=== PATIENT | male | born 1940 | race Caucasian/White ===

== ENCOUNTER 2016-08-02 08:20 | Day surgery (SDC) | payer MEDICARE, OTHER ==
[2016-07-31 12:33] LABS: DEFINITIVE VIEW TRANSMISSION; Hemoglobin 15.6 g/dL (13.5-17.5); Mean Corpuscular Hemoglobin 31.1 pg (28.0-32.0); Mean Corpuscular Hgb Conc. 32.5 g/dL (32.0-36.0); Mean Corpuscular Volume 95.9 fL (80.0-100.0); Mean Platelet Volume 8.5 fL (7.4-10.4); Platelet Count (auto) 179 10^3/uL (140-450); Red Cell Distribution Width 14.8 % (11.6-16.0); White Blood Cell 10.4 10^3/uL (4.4-10.8)
[2016-07-31 12:50] LABS: INR 1.07 (0.9-1.15); Partial Thromboplastin Time 27.8 sec (22.64-33.71); Prothrombin Time 11.6 sec (9.37-12.3)
[2016-07-31 13:00] LABS: Metamyelocytes % 0; Myelocytes % 0; Promyelocytes % 0; Reactive Lymphocytes 0
[2016-07-31 14:08] LABS: Platelet Estimate Adequate
[~2016-08-02] VITALS: Ht 167.6 cm; Wt 82.6 kg
[~2016-08-02 08:20] MED LIST: ASPI-231 PO; ATE50T PO; FLUT100M7 IN; LEVO125T6 PO; PANT40TA2 PO; TRIA75TA55 PO
[2016-08-02] MEDS ORDERED: MIDAZOLAM HCL 5 MG/ML-1ML VIAL ONE (08:25)
[2016-08-02] MEDS ORDERED: diphenhdrAMINE HCL 50 MG/1 ML VL ONE (08:25)
[2016-08-02] MEDS ORDERED: SODIUM CHLORIDE LOCK 10 ML ONE (08:25)
[2016-08-02] MEDS ORDERED: fentaNYL CITRATE 100 MCG/2 ML VL ONE (08:25)
[2016-08-02] MEDS ORDERED: LIDOCAINE VISCOUS 2% 15ML UD ONE (09:07)
[2016-08-02 09:55] VITALS: BP 90/42
== END 2016-08-02 10:09 | disposition home or self-care (01) ==
LOC: GI 08:20
PROVIDERS: ATTEND Internal Medicine Gastroenterology
DX: K29.50 Unspecified chronic gastritis without bleeding (principal); K22.8 Other specified diseases of esophagus; I20.9 Angina pectoris, unspecified; I72.9 Aneurysm of unspecified site; Z95.1 Presence of aortocoronary bypass graft
CPT/HCPCS: 36415; 43239; 43248; 85007; 85027; 85610; 85730; 88305; 88312; 88342; J2250; J3010; J7030

== ENCOUNTER → 2016-08-29 | Outpatient (CLI) | payer MEDICARE, OTHER ==
[2016-08-29 15:42] LABS: Basophils # (auto) 0.1 uL; Basophils % (auto) 0.6 % (0.0-2.0); DEFINITIVE VIEW TRANSMISSION; Eosinophils # (auto) 1.3 uL; Eosinophils % (auto) 14.4 % (0.0-7.0); Hematocrit 45.5 % (41.0-53.0); Hemoglobin 15.1 g/dL (13.5-17.5); Lymphocytes # (auto) 1.8 uL; Lymphocytes % (auto) 19.3 % (10.0-50.0); Mean Corpuscular Hemoglobin 31.7 pg (28.0-32.0); Mean Corpuscular Hgb Conc. 33.3 g/dL (32.0-36.0); Mean Corpuscular Volume 95.2 fL (80.0-100.0); Mean Platelet Volume 8.4 fL (7.4-10.4); Monocytes # (auto) 0.9 uL; Monocytes % (auto) 9.2 % (0.0-12.0); Neutrophils # (auto) 5.2 uL; Neutrophils % (auto) 56.5 % (37.0-80.0); Platelet Count (auto) 152 10^3/uL (140-450); Red Cell Distribution Width 14.8 % (11.6-16.0); White Blood Cell 9.2 10^3/uL (4.4-10.8)
[2016-08-29 15:57] LABS: Albumin 3.3 g/dL (3.4-5.0); BUN/Creatinine Ratio 6.8; Bilirubin, Total 1.8 mg/dL (0.2-1.0); Calcium 8.4 mg/dL (8.5-10.1); Potassium 3.9 mmol/L (3.5-5.1)
== END | disposition home or self-care (01) ==
LOC: LAB 15:11
DX: I10 Essential (primary) hypertension (principal); Z98.890 Other specified postprocedural states; Z12.5 Encounter for screening for malignant neoplasm of prostate; Z12.11 Encounter for screening for malignant neoplasm of colon; E78.2 Mixed hyperlipidemia
CPT/HCPCS: 36415; 80053; 80061; 82270; 84153; 84403; 84443; 85025

== ENCOUNTER → 2016-12-26 | Outpatient (CLI) | payer MEDICARE, OTHER ==
[2016-12-26 12:16] LABS: Urine Bilirubin Negative (Negative); Urine Blood Negative /uL (Negative); Urine Color Yellow (Yellow); Urine Glucose Normal (Normal); Urine Ketone TRACE (Negative); Urine Nitrite Negative (Negative); Urine Urobilinogen Normal (Negative); Urine pH 5.5 (5.0-8.0)
[2016-12-26 12:21] LABS: Basophils # (auto) 0.1 uL; Basophils % (auto) 0.9 % (0.0-2.0); Eosinophils % (auto) 12.6 % (0.0-7.0); Hematocrit 50.6 % (41.0-53.0); Hemoglobin 16.9 g/dL (13.5-17.5); Lymphocytes # (auto) 1.5 uL; Lymphocytes % (auto) 19.8 % (10.0-50.0); Mean Corpuscular Hemoglobin 32.8 pg (28.0-32.0); Mean Corpuscular Hgb Conc. 33.5 g/dL (32.0-36.0); Mean Corpuscular Volume 97.9 fL (80.0-100.0); Mean Platelet Volume 8.9 fL (6.9-10.8); Monocytes # (auto) 0.9 uL; Monocytes % (auto) 11.5 % (0.0-12.0); Neutrophils # (auto) 4.2 uL; Neutrophils % (auto) 55.2 % (37.0-80.0); Nucleated Red Blood Cells % 0.3 %; Platelet Count (auto) 136 10^3/uL (140-450); Red Cell Distribution Width 14.6 % (11.8-14.3); White Blood Cell 7.7 10^3/uL (4.4-10.8)
[2016-12-26 12:48] LABS: Albumin 3.3 g/dL (3.4-5.0); BUN/Creatinine Ratio 7.8; Bilirubin, Direct 0.2 mg/dL (0-0.2); Bilirubin, Total 0.7 mg/dL (0.2-1.0); Calcium 8.6 mg/dL (8.5-10.1); Potassium 4.3 mmol/L (3.5-5.1)
== END | disposition home or self-care (01) ==
LOC: LAB 08:24
PROVIDERS: ATTEND Internal Medicine Cardiovascular Disease
DX: I10 Essential (primary) hypertension (principal); E78.00 Pure hypercholesterolemia, unspecified; K74.1 Hepatic sclerosis; E11.9 Type 2 diabetes mellitus without complications; R97.20 Elevated prostate specific antigen [PSA]; R53.81 Other malaise; E03.9 Hypothyroidism, unspecified; D64.9 Anemia, unspecified; E55.9 Vitamin D deficiency, unspecified; N39.0 Urinary tract infection, site not specified
CPT/HCPCS: 36415; 80048; 80061; 80076; 81003; 82306; 83036; 84153; 84403; 84443; 85025

== ENCOUNTER → 2017-01-23 | Outpatient (CLI) | payer MEDICARE, OTHER ==
[~2017-01-23] VITALS: Ht 167.6 cm; Wt 87.5 kg
[~2017-01-23] MED LIST changes: +ADENOSINE 74 MG in GIVE UN-DILUTED 0 ML IV ONE; +ADENOSINE 90 MG/30 ML INJ IV ONE
== END | disposition home or self-care (01) ==
LOC: Rad HDHVI 09:59
PROVIDERS: ATTEND Internal Medicine Cardiovascular Disease
DX: I10 Essential (primary) hypertension (principal); I25.10 Atherosclerotic heart disease of native coronary artery without angina pectoris; I25.2 Old myocardial infarction; E78.00 Pure hypercholesterolemia, unspecified; Z95.1 Presence of aortocoronary bypass graft
CPT/HCPCS: 78452; 93005; 96374; 96375; A9500; J0153

== ENCOUNTER → 2017-02-04 | Outpatient (CLI) | payer MEDICARE, OTHER ==
[~2017-02-04] MED LIST changes: -ADENOSINE 74 MG in GIVE UN-DILUTED 0 ML IV ONE; -ADENOSINE 90 MG/30 ML INJ IV ONE
== END | disposition home or self-care (01) ==
LOC: Rad HDHVI 13:20
PROVIDERS: ATTEND Internal Medicine Cardiovascular Disease
DX: I50.9 Heart failure, unspecified (principal)
CPT/HCPCS: 93306

== ENCOUNTER → 2017-02-18 | Outpatient (CLI) | payer MEDICARE, OTHER ==
[2017-02-18 13:13] LABS: Magnesium 2.1 mg/dL (1.6-2.6); Potassium 3.9 mmol/L (3.5-5.1)
== END | disposition home or self-care (01) ==
LOC: LAB 10:12
PROVIDERS: ATTEND Internal Medicine Cardiovascular Disease
DX: E03.9 Hypothyroidism, unspecified (principal); E87.6 Hypokalemia; R94.4 Abnormal results of kidney function studies; E83.42 Hypomagnesemia
CPT/HCPCS: 36415; 82565; 83735; 84132; 84439; 84443; 84520

== ENCOUNTER 2017-05-27 18:52 | Emergency (ER) | payer MEDICARE, OTHER ==
[~2017-05-27] VITALS: Ht 167.6 cm; Wt 85.3 kg
[~2017-05-27 18:52] MED LIST changes: -LEVO125T6 PO; +LEVO125T7 PO
[2017-05-27 20:30] LABS: Albumin 3.1 g/dL (3.4-5.0); Bilirubin, Total 2.7 mg/dL (0.2-1.0); Calcium 8.3 mg/dL (8.5-10.1); Potassium 4.2 mmol/L (3.5-5.1); Total Protein 8.1 g/dL (6.4-8.2)
[2017-05-27 20:32] LABS: Basophils # (auto) 0.1 uL; Eosinophils # (auto) 0 uL; Eosinophils % (auto) 0.2 % (0.0-7.0); Mean Corpuscular Hgb Conc. 33.6 g/dL (32.0-36.0); Neutrophils % (auto) 82.4 % (37.0-80.0)
[2017-05-27 20:34] LABS: Basophils % (auto) 0.4 % (0.0-2.0); Hematocrit 53.6 % (41.0-53.0); Lymphocytes # (auto) 1.3 uL; Lymphocytes % (auto) 7.3 % (10.0-50.0); Mean Corpuscular Hemoglobin 32.3 pg (28.0-32.0); Mean Corpuscular Volume 96.1 fL (80.0-100.0); Monocytes # (auto) 1.8 uL; Monocytes % (auto) 9.7 % (0.0-12.0); Neutrophils # (auto) 15.3 uL; Nucleated Red Blood Cells % 0.3 %; Platelet Count (auto) 190 10^3/uL (140-450); Red Blood Cells 5.58 10^6/uL (4.5-5.90); Red Cell Distribution Width 15.3 % (11.8-14.3); White Blood Cell 18.5 10^3/uL (4.4-10.8)
[2017-05-28] MEDS ORDERED: ACETAMINOPHEN 325 MG TAB PO ONE (00:30)
[2017-05-28] MEDS ORDERED: LEVOFLOXACIN 500 MG TAB ONE (01:24)
[2017-05-28] MEDS ORDERED: LEVOFLOXACIN 250 MG TAB PO ONE (01:30)
[2017-05-28 03:55] VITALS: BP 118/54
== END 2017-05-28 04:32 | disposition home or self-care (01) ==
LOC: ER 18:52
DX: M79.604 Pain in right leg (principal); M79.605 Pain in left leg; M19.90 Unspecified osteoarthritis, unspecified site; E07.89 Other specified disorders of thyroid
CPT/HCPCS: 36415; 71046; 80053; 83880; 84443; 84484; 85025; 85379; 93971

== ENCOUNTER → 2017-06-12 | Outpatient (CLI) | payer MEDICARE, OTHER ==
[~2017-06-12] MED LIST changes: +FUROSEMIDE 40 MG/4 ML VIAL IV ONE; +FUROSEMIDE 40 MG/4 ML VIAL ONE; +POTASSIUM CHL 20 Meq TABLET PO ONE
[2017-06-12 15:40] VITALS: BP 143/57
[2017-06-12 16:25] VITALS: BP 141/60
== END | disposition home or self-care (01) ==
LOC: CHF HDHVI 15:41
PROVIDERS: ATTEND Internal Medicine Cardiovascular Disease
DX: I50.9 Heart failure, unspecified (principal); I25.10 Atherosclerotic heart disease of native coronary artery without angina pectoris
CPT/HCPCS: 96374; G0463; J1940

== ENCOUNTER → 2017-07-15 | Outpatient (CLI) | payer MEDICARE, OTHER ==
[~2017-07-15] MED LIST changes: -FUROSEMIDE 40 MG/4 ML VIAL IV ONE; -FUROSEMIDE 40 MG/4 ML VIAL ONE; -POTASSIUM CHL 20 Meq TABLET PO ONE
[2017-07-15 16:13] LABS: Albumin 3.3 g/dL (3.4-5.0); Bilirubin, Total 0.9 mg/dL (0.2-1.0); Calcium 8.7 mg/dL (8.5-10.1); Potassium 4.8 mmol/L (3.5-5.1); Total Protein 7.9 g/dL (6.4-8.2)
== END | disposition home or self-care (01) ==
LOC: LAB 11:12
PROVIDERS: ATTEND Internal Medicine Cardiovascular Disease
DX: I11.0 Hypertensive heart disease with heart failure (principal); I50.33 Acute on chronic diastolic (congestive) heart failure; E11.9 Type 2 diabetes mellitus without complications; Z79.01 Long term (current) use of anticoagulants
CPT/HCPCS: 36415; 80053; 83880

== ENCOUNTER → 2017-09-02 | Outpatient (CLI) | payer MEDICARE, OTHER ==
[~2017-09-02] MED LIST changes: +FUROSEMIDE 100 MG/10ML VIAL IV SCH; +FUROSEMIDE 40 MG/4 ML VIAL ONE; +POTASSIUM CHL 20 Meq TABLET PO ONE
[2017-09-02 12:30] VITALS: BP 120/63
[2017-09-02 13:00] VITALS: BP 120/65
== END | disposition home or self-care (01) ==
LOC: CHF HDHVI 12:39
PROVIDERS: ATTEND Internal Medicine Cardiovascular Disease
DX: I11.0 Hypertensive heart disease with heart failure (principal); I50.33 Acute on chronic diastolic (congestive) heart failure; I25.10 Atherosclerotic heart disease of native coronary artery without angina pectoris; J44.9 Chronic obstructive pulmonary disease, unspecified; E11.9 Type 2 diabetes mellitus without complications; Z79.01 Long term (current) use of anticoagulants
CPT/HCPCS: 96374; G0463; J1940

== ENCOUNTER → 2018-01-15 | Outpatient (CLI) | payer MEDICARE, OTHER ==
[~2018-01-15] MED LIST changes: +FUROSEMIDE 100 MG/10ML VIAL IV ONE; -FUROSEMIDE 100 MG/10ML VIAL IV SCH; +POTASSIUM CHL 10 Meq TABLET PO ONE
[2018-01-15 12:40] VITALS: BP 130/70
[2018-01-15 13:00] VITALS: BP 126/65
== END | disposition home or self-care (01) ==
LOC: CHF HDHVI 12:40
PROVIDERS: ATTEND Internal Medicine Cardiovascular Disease
DX: E87.70 Fluid overload, unspecified (principal); I50.33 Acute on chronic diastolic (congestive) heart failure; J44.9 Chronic obstructive pulmonary disease, unspecified; I25.10 Atherosclerotic heart disease of native coronary artery without angina pectoris; E11.9 Type 2 diabetes mellitus without complications; Z79.01 Long term (current) use of anticoagulants
CPT/HCPCS: 96374; G0463; J1940

== ENCOUNTER → 2018-01-29 | Outpatient (CLI) | payer MEDICARE, OTHER ==
[~2018-01-29] VITALS: Ht 30.5 cm; Wt 83.9 kg
[~2018-01-29] MED LIST changes: -FUROSEMIDE 100 MG/10ML VIAL IV ONE; -FUROSEMIDE 40 MG/4 ML VIAL ONE; +IOHEXOL 350 MG/ML 100ML IJ ONE; -POTASSIUM CHL 10 Meq TABLET PO ONE; -POTASSIUM CHL 20 Meq TABLET PO ONE; +SODIUM CHLORIDE 0.9% 1,000 ML IV SCH
[2018-01-29 11:50] VITALS: BP 119/69
[2018-01-29 12:13] LABS: Basophils # (auto) 0.1 uL; Eosinophils # (auto) 0.5 uL; Lymphocytes # (auto) 1.7 uL; Mean Corpuscular Volume 96.6 fL (80.0-100.0)
[2018-01-29 12:15] LABS: Basophils % (auto) 0.8 % (0.0-2.0); Eosinophils % (auto) 5.9 % (0.0-7.0); Lymphocytes % (auto) 19.7 % (10.0-50.0); Mean Corpuscular Hemoglobin 32.1 pg (28.0-32.0); Mean Corpuscular Hgb Conc. 33.3 g/dL (32.0-36.0); Monocytes # (auto) 0.8 uL; Monocytes % (auto) 9.9 % (0.0-12.0); Neutrophils # (auto) 5.4 uL; Neutrophils % (auto) 63.7 % (37.0-80.0); Nucleated Red Blood Cells % 0.2 %; Platelet Count (auto) 207 10^3/uL (140-450); Red Blood Cells 5.92 10^6/uL (4.5-5.90); White Blood Cell 8.4 10^3/uL (4.4-10.8)
[2018-01-29 12:19] LABS: Hematocrit 57.2 % (41.0-53.0)
[2018-01-29 12:34] LABS: BUN/Creatinine Ratio 10.7; Calcium 8.3 mg/dL (8.5-10.1); Potassium 3.9 mmol/L (3.5-5.1)
== END | disposition home or self-care (01) ==
LOC: Rad HDHVI 10:19
PROVIDERS: ATTEND Internal Medicine Cardiovascular Disease
DX: N28.9 Disorder of kidney and ureter, unspecified (principal); M79.662 Pain in left lower leg; I11.0 Hypertensive heart disease with heart failure; I50.33 Acute on chronic diastolic (congestive) heart failure; D64.9 Anemia, unspecified; I70.202 Unspecified atherosclerosis of native arteries of extremities, left leg; I70.201 Unspecified atherosclerosis of native arteries of extremities, right leg; I83.93 Asymptomatic varicose veins of bilateral lower extremities; E11.9 Type 2 diabetes mellitus without complications; I25.10 Atherosclerotic heart disease of native coronary artery without angina pectoris; J44.9 Chronic obstructive pulmonary disease, unspecified; Z79.01 Long term (current) use of anticoagulants
CPT/HCPCS: 36415; 75635; 80048; 82565; 85025; 96360; G0463; J7030; Q9967

== ENCOUNTER → 2018-04-28 | Day surgery (SDC) | payer MEDICARE, OTHER ==
[2018-04-24 12:19] LABS: Basophils # (auto) 0.1 uL; Eosinophils # (auto) 0.5 uL; Monocytes # (auto) 0.7 uL; Nucleated Red Blood Cells % 0.1 %
[2018-04-24 12:20] LABS: Basophils % (auto) 0.8 % (0.0-2.0); Eosinophils % (auto) 7.5 % (0.0-7.0); Hematocrit 53.8 % (41.0-53.0); Hemoglobin 18.1 g/dL (13.5-17.5); Lymphocytes # (auto) 1.4 uL; Lymphocytes % (auto) 20.2 % (10.0-50.0); Mean Corpuscular Hemoglobin 32.4 pg (28.0-32.0); Mean Corpuscular Hgb Conc. 33.7 g/dL (32.0-36.0); Mean Corpuscular Volume 96.1 fL (80.0-100.0); Monocytes % (auto) 10.9 % (0.0-12.0); Neutrophils # (auto) 4.1 uL; Neutrophils % (auto) 60.6 % (37.0-80.0); Platelet Count (auto) 152 10^3/uL (140-450); Red Cell Distribution Width 14.7 % (11.8-14.3); White Blood Cell 6.7 10^3/uL (4.4-10.8)
[2018-04-24 12:36] LABS: INR 1.05 (0.9-1.15); Partial Thromboplastin Time 28.9 sec (23.78-33.04); Prothrombin Time 11.2 sec (9.27-12.13)
[~2018-04-28] VITALS: Ht 167.6 cm; Wt 86.2 kg
[~2018-04-28] MED LIST changes: +FLUMAZENIL 0.1 MG/ML INJ 10ML MDV IV ONE; -IOHEXOL 350 MG/ML 100ML IJ ONE; +LIDOCAINE VISCOUS 2% 15ML UD ONE; +MONT10TA34 PO; +NALOXONE HCL 0.4 MG/ML VIAL ONE; +POTA20TA53 PO; +RIVA10TA PO; -SODIUM CHLORIDE 0.9% 1,000 ML IV SCH; +SODIUM CHLORIDE LOCK 10 ML ONE; +TORS10TA12 PO; -TRIA75TA55 PO; +diphenhdrAMINE HCL 50 MG/1 ML VL ONE
[2018-04-28] MEDS: MIDAZOLAM HCL 5 MG/ML-1ML VIAL ONE ×2 (09:00→09:03)
[2018-04-28] MEDS: fentaNYL CITRATE 100 MCG/2 ML VL ONE ×2 (09:00→09:03)
[2018-04-28 09:45] VITALS: BP 108/65
== END | disposition home or self-care (01) ==
LOC: GI 08:10
PROVIDERS: ATTEND Internal Medicine Gastroenterology
DX: K29.50 Unspecified chronic gastritis without bleeding (principal); R13.10 Dysphagia, unspecified; K20.9 Esophagitis, unspecified; I20.9 Angina pectoris, unspecified; I50.9 Heart failure, unspecified; Q24.9 Congenital malformation of heart, unspecified; I72.9 Aneurysm of unspecified site; J44.9 Chronic obstructive pulmonary disease, unspecified; F41.9 Anxiety disorder, unspecified; I71.4 Abdominal aortic aneurysm, without rupture; Z82.3 Family history of stroke; Z98.49 Cataract extraction status, unspecified eye; Z95.1 Presence of aortocoronary bypass graft; Z79.82 Long term (current) use of aspirin; Z79.899 Other long term (current) drug therapy
CPT/HCPCS: 36415; 43239; 43248; 85025; 85610; 85730; 88305; 88342; A6257; J2250; J3010; J7030

== ENCOUNTER → 2018-09-18 | Outpatient (CLI) | payer MEDICARE, OTHER ==
[~2018-09-18] MED LIST changes: -FLUMAZENIL 0.1 MG/ML INJ 10ML MDV IV ONE; -LIDOCAINE VISCOUS 2% 15ML UD ONE; -NALOXONE HCL 0.4 MG/ML VIAL ONE; -SODIUM CHLORIDE LOCK 10 ML ONE; -diphenhdrAMINE HCL 50 MG/1 ML VL ONE
== END | disposition home or self-care (01) ==
LOC: LAB 15:00
PROVIDERS: ATTEND Internal Medicine Pulmonary Disease
DX: J44.0 Chronic obstructive pulmonary disease with (acute) lower respiratory infection (principal)
CPT/HCPCS: 87070; 87205

== ENCOUNTER → 2018-10-06 | Outpatient (CLI) | payer MEDICARE, OTHER ==
[~2018-10-06] MED LIST changes: +ALBUTEROL SULF 2.5 MG/0.5ML(0.5%) NEB SOLN ONE
== END | disposition home or self-care (01) ==
LOC: RT 09:00
PROVIDERS: ATTEND Internal Medicine Pulmonary Disease
DX: J44.9 Chronic obstructive pulmonary disease, unspecified (principal); J84.10 Pulmonary fibrosis, unspecified
CPT/HCPCS: 36600; 82805; 94060; J7611

== ENCOUNTER → 2019-01-07 | Outpatient (CLI) | payer MEDICARE, OTHER ==
[~2019-01-07] MED LIST changes: -ALBUTEROL SULF 2.5 MG/0.5ML(0.5%) NEB SOLN ONE; +POTA-220 PO; -POTA20TA53 PO
== END | disposition home or self-care (01) ==
LOC: Rad HDHVI 11:19
PROVIDERS: ATTEND Internal Medicine Cardiovascular Disease
DX: I83.93 Asymptomatic varicose veins of bilateral lower extremities (principal); I71.4 Abdominal aortic aneurysm, without rupture; M19.90 Unspecified osteoarthritis, unspecified site; I50.9 Heart failure, unspecified; Z87.891 Personal history of nicotine dependence
CPT/HCPCS: 93970

== ENCOUNTER → 2019-02-10 | Outpatient (CLI) | payer MEDICARE, OTHER ==
[~2019-02-10] MED LIST changes: +IOHEXOL 350 MG/ML 100ML IJ ONE; +SODIUM CHLORIDE 0.9% 500 ML IV ONE
[2019-02-10 12:30] VITALS: BP 118/58
--- NOTE | 2019-02-10 12:30 | NUR ---
[facility] PT ARRIVED AT THE [facility] FOR CT OF THE ABDOMEN A/O X 4 0 DISTRESS.
--- NOTE | 2019-02-10 12:40 | NUR ---
IV insertion IV access obtained, via clean sterile technique by inserting 22 gauge catheter at after attempt(s). IV secured properly. No trauma to site. Patient tolerated procedure well.
[2019-02-10 14:32] VITALS: BP 120/55
--- NOTE | 2019-02-10 15:00 | NUR ---
IV removal IV DC'd with sterile technique, catheter fully intact. Pressure dressing applied to site. Patient tolerated procedure well. Discharged with aftercare instructions per MD. NOTE: Addendum: 02/10/19 at 1639 by ANNE MARIE BURNETT RN [place] PT HYDRATED FOR CREA 1.6
--- NOTE | 2019-02-10 15:02 | NUR ---
Discharge Instructions See e-MAR for any mediations given with this visit. Patient education given on disease process. Patient verbalized understanding. Previous labs reviewed. Patient discharged in stable condition with after care instructions and follow up appointment. medication ns 500 ml IV
== END | disposition home or self-care (01) ==
LOC: Rad HDHVI 12:07
PROVIDERS: ATTEND Internal Medicine Cardiovascular Disease
DX: I71.4 Abdominal aortic aneurysm, without rupture (principal); K80.20 Calculus of gallbladder without cholecystitis without obstruction; K44.9 Diaphragmatic hernia without obstruction or gangrene; R94.4 Abnormal results of kidney function studies; I50.9 Heart failure, unspecified; M19.90 Unspecified osteoarthritis, unspecified site
CPT/HCPCS: 36415; 74175; 82565; G0463; J7040; Q9967; 96360

== ENCOUNTER → 2019-03-30 | Outpatient (CLI) | payer MEDICARE, OTHER ==
[~2019-03-30] MED LIST changes: +ATOR20TA50 PO; +CLOP75TA28 PO; +FURO20TA3 PO; -IOHEXOL 350 MG/ML 100ML IJ ONE; +LEV100T PO; -LEVO125T7 PO; -POTA-220 PO; -RIVA10TA PO; -SODIUM CHLORIDE 0.9% 500 ML IV ONE; -TORS10TA12 PO; +TRIA0.1C4 EX
[2019-03-30 15:55] LABS: Basophils # (auto) 0.1 uL; Eosinophils # (auto) 0.2 uL; Monocytes # (auto) 1.1 uL; Neutrophils # (auto) 8.4 uL
[2019-03-30 15:57] LABS: Basophils % (auto) 0.9 % (0.0-2.0); Hematocrit 47.3 % (41.0-53.0); Hemoglobin 15.7 g/dL (13.5-17.5); Lymphocytes # (auto) 1.4 uL; Lymphocytes % (auto) 12.5 % (10.0-50.0); Mean Corpuscular Hemoglobin 33.8 pg (28.0-32.0); Mean Corpuscular Hgb Conc. 33.1 g/dL (32.0-36.0); Neutrophils % (auto) 74.6 % (37.0-80.0); Platelet Count (auto) 287 10^3/uL (140-450); Red Blood Cells 4.64 10^6/uL (4.5-5.90); Red Cell Distribution Width 13.8 % (11.8-14.3); White Blood Cell 11.2 10^3/uL (4.4-10.8)
== END | disposition home or self-care (01) ==
LOC: LAB 11:53
PROVIDERS: ATTEND Internal Medicine Cardiovascular Disease
DX: D75.1 Secondary polycythemia (principal)
CPT/HCPCS: 36415; 85025

== ENCOUNTER → 2019-04-10 | Outpatient (CLI) | payer MEDICARE, OTHER ==
[2019-04-10 16:23] LABS: Basophils # (auto) 0.1 uL; Basophils % (auto) 0.7 % (0.0-2.0); Eosinophils # (auto) 0.3 uL; Eosinophils % (auto) 2.5 % (0.0-7.0); Hematocrit 47.9 % (41.0-53.0); Hemoglobin 16.3 g/dL (13.5-17.5); Lymphocytes # (auto) 1.6 uL; Lymphocytes % (auto) 15.8 % (10.0-50.0); Mean Corpuscular Hemoglobin 33.6 pg (28.0-32.0); Mean Corpuscular Hgb Conc. 34.1 g/dL (32.0-36.0); Mean Corpuscular Volume 98.6 fL (80.0-100.0); Neutrophils # (auto) 7.2 uL; Nucleated Red Blood Cells % 0.1 %; Platelet Count (auto) 113 10^3/uL (140-450); Red Blood Cells 4.86 10^6/uL (4.5-5.90); Red Cell Distribution Width 13.5 % (11.8-14.3); White Blood Cell 10.1 10^3/uL (4.4-10.8)
[2019-04-10 16:39] LABS: Free T4 (Free Thyroxine) 1.49 ng/dL (0.89-1.76); Prostate Specific Antigen 1.36 ng/mL (0.0-4.0)
[2019-04-10 16:46] LABS: Urine Blood Negative /uL (Negative); Urine Specific Gravity 1.009 (1.001-1.035)
[2019-04-10 16:49] LABS: BUN/Creatinine Ratio 8.4; Bilirubin, Total 1.8 mg/dL (0.2-1.0); Calcium 9.2 mg/dL (8.5-10.1); Total Protein 7.5 g/dL (6.4-8.2)
== END | disposition home or self-care (01) ==
LOC: Rad HDHVI 11:13
PROVIDERS: ATTEND Internal Medicine Cardiovascular Disease
DX: I08.0 Rheumatic disorders of both mitral and aortic valves (principal); E03.9 Hypothyroidism, unspecified; C61 Malignant neoplasm of prostate; D51.9 Vitamin B12 deficiency anemia, unspecified; K90.9 Intestinal malabsorption, unspecified; E29.1 Testicular hypofunction; R06.02 Shortness of breath; I11.0 Hypertensive heart disease with heart failure; I50.23 Acute on chronic systolic (congestive) heart failure; Z79.899 Other long term (current) drug therapy
CPT/HCPCS: 36415; 80053; 80061; 81003; 82306; 82607; 83036; 84153; 84403; 84439; 84443; 85025; 93306

== ENCOUNTER → 2019-06-17 | Outpatient (CLI) | payer MEDICARE, OTHER ==
[2019-06-17 15:40] LABS: Basophils # (auto) 0.1 10 ^3/uL (0-0.2); Basophils % (auto) 0.8 % (0.0-2.0); Eosinophils # (auto) 0.4 10 ^3/uL (0-0.8); Eosinophils % (auto) 5.5 % (0.0-7.0); Hematocrit 39.8 % (41.0-53.0); Hemoglobin 13.8 g/dL (13.5-17.5); Lymphocytes # (auto) 1.3 10 ^3/uL (0.4-5.4); Lymphocytes % (auto) 18.3 % (10.0-50.0); Mean Corpuscular Hemoglobin 31.6 pg (28.0-32.0); Mean Corpuscular Hgb Conc. 34.6 g/dL (32.0-36.0); Mean Corpuscular Volume 91.3 fL (80.0-100.0); Neutrophils # (auto) 4.6 10 ^3/uL (1.6-8.6); Neutrophils % (auto) 62.4 % (37.0-80.0); Platelet Count (auto) 106 10^3/uL (140-450); Red Blood Cells 4.36 10^6/uL (4.5-5.90); Red Cell Distribution Width 14.6 % (11.8-14.3); White Blood Cell 7.4 10^3/uL (4.4-10.8)
[2019-06-17 16:10] LABS: Albumin 2.9 g/dL (3.4-5.0); Calcium 8.6 mg/dL (8.5-10.1); Potassium 4.1 mmol/L (3.5-5.1)
[2019-06-17 16:11] LABS: % Iron Saturation 37.3 % (20-55)
[2019-06-17 16:12] LABS: BUN/Creatinine Ratio 8.1
[2019-06-17 16:15] LABS: Bilirubin, Total 1.4 mg/dL (0.2-1.0); Total Protein 7.6 g/dL (6.4-8.2)
[2019-06-17 16:17] LABS: Ferritin 536.8 ng/mL (10-322); Folate (Folic Acid) > 24.00 ng/mL (5.38-24)
== END | disposition home or self-care (01) ==
LOC: LAB 15:25
PROVIDERS: ATTEND Internal Medicine
DX: D75.1 Secondary polycythemia (principal); D69.6 Thrombocytopenia, unspecified
CPT/HCPCS: 36415; 80053; 82607; 82728; 82746; 83540; 83550; 85025

== ENCOUNTER → 2019-12-16 | Outpatient (CLI) | payer MEDICARE, OTHER ==
[2019-12-16 22:20] LABS: BUN/Creatinine Ratio 11.3; Calcium 8.8 mg/dL (8.5-10.1); Potassium 3.4 mmol/L (3.5-5.1)
== END | disposition home or self-care (01) ==
LOC: LAB 12:52
PROVIDERS: ATTEND Internal Medicine Cardiovascular Disease
DX: I10 Essential (primary) hypertension (principal)
CPT/HCPCS: 36415; 80048

== ENCOUNTER → 2020-01-29 | Outpatient (CLI) | payer MEDICARE, OTHER | END | disposition home or self-care (01) | LOC: Rad HDHVI 15:15 | PROVIDERS: ATTEND Internal Medicine Cardiovascular Disease | DX: I51.7 Cardiomegaly (principal); I25.10 Atherosclerotic heart disease of native coronary artery without angina pectoris; I25.5 Ischemic cardiomyopathy | CPT/HCPCS: 93306 ==

== ENCOUNTER → 2020-02-03 | Outpatient (CLI) | payer MEDICARE, OTHER ==
[~2020-02-03] VITALS: Ht 167.6 cm; Wt 72.1 kg
[~2020-02-03] MED LIST changes: +ADENOSINE 61 MG in GIVE UN-DILUTED 0 ML IV ONE; +ADENOSINE 90 MG/30 ML INJ IV ONE
== END | disposition home or self-care (01) ==
LOC: Rad HDHVI 14:15
PROVIDERS: ATTEND Internal Medicine Cardiovascular Disease
DX: I25.10 Atherosclerotic heart disease of native coronary artery without angina pectoris (principal); I25.2 Old myocardial infarction; I10 Essential (primary) hypertension; E78.5 Hyperlipidemia, unspecified; J44.9 Chronic obstructive pulmonary disease, unspecified; Z95.1 Presence of aortocoronary bypass graft
CPT/HCPCS: 78452; 93005; 96374; 96375; A9500; J0153

== ENCOUNTER → 2020-06-22 | Outpatient (CLI) | payer MEDICARE, OTHER ==
[~2020-06-22] MED LIST changes: -ADENOSINE 61 MG in GIVE UN-DILUTED 0 ML IV ONE; -ADENOSINE 90 MG/30 ML INJ IV ONE
== END | disposition home or self-care (01) ==
LOC: Rad HDHVI 13:36
PROVIDERS: ATTEND Internal Medicine Cardiovascular Disease
DX: I70.0 Atherosclerosis of aorta (principal); J06.9 Acute upper respiratory infection, unspecified
CPT/HCPCS: 71046

== ENCOUNTER → 2020-09-05 | Outpatient (CLI) | payer MEDICARE, OTHER ==
[~2020-09-05] MED LIST changes: -MONT10TA34 PO; +MONT10TA42 PO
[2020-09-05 15:29] LABS: Basophils # (auto) 0.1 10 ^3/uL (0-0.2); Basophils % (auto) 1.1 % (0.0-2.0); Eosinophils # (auto) 0.6 10 ^3/uL (0-0.8); Eosinophils % (auto) 7.5 % (0.0-7.0); Hematocrit 45.4 % (41.0-53.0); Hemoglobin 15.6 g/dL (13.5-17.5); Lymphocytes # (auto) 1.9 10 ^3/uL (0.4-5.4); Lymphocytes % (auto) 23.7 % (10.0-50.0); Mean Corpuscular Hgb Conc. 34.3 g/dL (32.0-36.0); Mean Corpuscular Volume 93.3 fL (80.0-100.0); Monocytes # (auto) 0.8 10 ^3/uL (0-1.3); Monocytes % (auto) 9.4 % (0.0-12.0); Neutrophils # (auto) 4.7 10 ^3/uL (1.6-8.6); Neutrophils % (auto) 58.3 % (37.0-80.0); Nucleated Red Blood Cells % 0.1 %; Platelet Count (auto) 235 10^3/uL (140-450); Red Blood Cells 4.86 10^6/uL (4.5-5.90); Red Cell Distribution Width 15.2 % (11.8-14.3); White Blood Cell 8.1 10^3/uL (4.4-10.8)
[2020-09-05 15:41] LABS: Urine Blood Negative /uL (Negative); Urine Specific Gravity 1.006 (1.001-1.035)
[2020-09-05 15:42] LABS: Albumin 2.7 g/dL (3.4-5.0); Calcium 8.6 mg/dL (8.5-10.1); Potassium 4.2 mmol/L (3.5-5.1)
[2020-09-05 15:51] LABS: Free T4 (Free Thyroxine) 0.96 ng/dL (0.89-1.76)
[2020-09-05 15:52] LABS: Prostate Specific Antigen 1.61 ng/mL (0.0-4.0)
[2020-09-05 15:55] LABS: BUN/Creatinine Ratio 7.8; Bilirubin, Total 1.2 mg/dL (0.2-1.0); Total Protein 7.3 g/dL (6.4-8.2)
== END | disposition home or self-care (01) ==
LOC: LAB 11:09
PROVIDERS: ATTEND Internal Medicine Cardiovascular Disease
DX: C61 Malignant neoplasm of prostate (principal); D51.3 Other dietary vitamin B12 deficiency anemia; D64.9 Anemia, unspecified; E11.9 Type 2 diabetes mellitus without complications; E55.9 Vitamin D deficiency, unspecified; I10 Essential (primary) hypertension; R00.2 Palpitations; R53.1 Weakness; R30.0 Dysuria
CPT/HCPCS: 36415; 80053; 80061; 81003; 82306; 82607; 83036; 84153; 84403; 84439; 84443; 85025

== ENCOUNTER → 2020-11-09 | Outpatient (CLI) | payer MEDICARE, OTHER | END | disposition home or self-care (01) | LOC: Rad HDHVI 11:16 | PROVIDERS: ATTEND Internal Medicine Cardiovascular Disease | DX: I10 Essential (primary) hypertension (principal); R06.02 Shortness of breath | CPT/HCPCS: 93306 ==

== ENCOUNTER → 2020-11-18 | Outpatient (CLI) | payer MEDICARE, OTHER ==
[2020-11-18 11:40] VITALS: BP 128/60
== END | disposition home or self-care (01) ==
LOC: CHF HDHVI 11:39
PROVIDERS: ATTEND Internal Medicine Cardiovascular Disease
DX: I87.2 Venous insufficiency (chronic) (peripheral) (principal)
CPT/HCPCS: G0463

== ENCOUNTER → 2020-11-21 | Outpatient (CLI) | payer MEDICARE, OTHER ==
[2020-11-21 13:53] VITALS: BP 114/43
[2020-11-21 14:45] VITALS: BP 106/42
== END | disposition home or self-care (01) ==
LOC: CHF HDHVI 13:52
PROVIDERS: ATTEND Internal Medicine Cardiovascular Disease
DX: I87.2 Venous insufficiency (chronic) (peripheral) (principal)
CPT/HCPCS: G0463

== ENCOUNTER → 2020-11-24 | Outpatient (CLI) | payer MEDICARE, OTHER ==
[2020-11-24 14:43] VITALS: BP 124/44
[2020-11-24 15:20] VITALS: BP 118/47
== END | disposition home or self-care (01) ==
LOC: CHF HDHVI 14:27
PROVIDERS: ATTEND Internal Medicine Cardiovascular Disease
DX: I87.8 Other specified disorders of veins (principal)
CPT/HCPCS: G0463

== ENCOUNTER → 2021-04-14 | Outpatient (CLI) | payer MEDICARE, OTHER ==
[~2021-04-14] MED LIST changes: -ASPI-231 PO; +ASPI1TAB20 PO; +MONT-8 PO; -MONT10TA42 PO
[2021-04-14 15:20] LABS: Urine Blood Negative /uL (Negative); Urine Specific Gravity 1.024 (1.001-1.035)
[2021-04-14 15:22] LABS: Basophils # (auto) 0.1 10 ^3/uL (0-0.2); Basophils % (auto) 0.8 % (0.0-2.0); Eosinophils # (auto) 0.2 10 ^3/uL (0-0.8); Eosinophils % (auto) 3.3 % (0.0-7.0); Hematocrit 49.2 % (41.0-53.0); Hemoglobin 16.3 g/dL (13.5-17.5); Lymphocytes # (auto) 1.3 10 ^3/uL (0.4-5.4); Lymphocytes % (auto) 18.1 % (10.0-50.0); Mean Corpuscular Hemoglobin 33.5 pg (28.0-32.0); Mean Corpuscular Hgb Conc. 33.2 g/dL (32.0-36.0); Mean Corpuscular Volume 100.8 fL (80.0-100.0); Monocytes # (auto) 0.7 10 ^3/uL (0-1.3); Monocytes % (auto) 10.7 % (0.0-12.0); Neutrophils # (auto) 4.7 10 ^3/uL (1.6-8.6); Neutrophils % (auto) 67.1 % (37.0-80.0); Red Blood Cells 4.88 10^6/uL (4.5-5.90); Red Cell Distribution Width 15.3 % (11.8-14.3)
[2021-04-14 15:28] LABS: Albumin 3.1 g/dL (3.4-5.0); Potassium 4.8 mmol/L (3.5-5.1)
[2021-04-14 15:35] LABS: BUN/Creatinine Ratio 11.7; Bilirubin, Total 1.8 mg/dL (0.2-1.0); Calcium 8.4 mg/dL (8.5-10.1); Total Protein 6.9 g/dL (6.4-8.2)
[2021-04-14 15:37] LABS: Free T4 (Free Thyroxine) 0.56 ng/dL (0.89-1.76)
== END | disposition home or self-care (01) ==
LOC: LAB 13:44
PROVIDERS: ATTEND Internal Medicine Cardiovascular Disease
DX: C61 Malignant neoplasm of prostate (principal); D51.3 Other dietary vitamin B12 deficiency anemia; I10 Essential (primary) hypertension; E11.9 Type 2 diabetes mellitus without complications; E55.9 Vitamin D deficiency, unspecified; D64.9 Anemia, unspecified; R00.2 Palpitations; R53.1 Weakness; R30.0 Dysuria
CPT/HCPCS: 36415; 80053; 80061; 81003; 82306; 82607; 83036; 84439; 84443; 85025

== ENCOUNTER → 2021-05-24 | Outpatient (CLI) | payer MEDICARE, OTHER | END | disposition home or self-care (01) | LOC: CHF HDHVI 10:21 | PROVIDERS: ATTEND Internal Medicine Cardiovascular Disease | DX: E03.9 Hypothyroidism, unspecified (principal) | CPT/HCPCS: 36415; 84443 ==

== ENCOUNTER → 2021-06-26 | Outpatient (CLI) | payer MEDICARE, OTHER | END | disposition home or self-care (01) | LOC: LAB 14:05 | PROVIDERS: ATTEND Internal Medicine Cardiovascular Disease | DX: C61 Malignant neoplasm of prostate (principal) | CPT/HCPCS: 84153 ==

== ENCOUNTER → 2021-07-03 | Outpatient (CLI) | payer MEDICARE, OTHER ==
[~2021-07-03] MED LIST changes: +BUMETANIDE 1mg/4ml VIAL (0.25mg/ml) ONE; +BUMETANIDE 2.5mg/10ml (0.25 mg/ml) INJ IV ONE; +BUMETANIDE INJECTION 10 ML ONE; +POTASSIUM CHL 20 Meq TABLET PO ONE
[2021-07-03 11:36] VITALS: BP 131/50
[2021-07-03 12:11] VITALS: BP 145/58
== END | disposition home or self-care (01) ==
LOC: Rad HDHVI 11:39
PROVIDERS: ATTEND Internal Medicine Cardiovascular Disease
DX: I10 Essential (primary) hypertension (principal); E87.6 Hypokalemia; C61 Malignant neoplasm of prostate; E11.9 Type 2 diabetes mellitus without complications; E03.9 Hypothyroidism, unspecified
CPT/HCPCS: 71046; 96374; G0463; J3490

== ENCOUNTER → 2021-08-08 | Outpatient (CLI) | payer MEDICARE, OTHER ==
[~2021-08-08] MED LIST changes: -BUMETANIDE 1mg/4ml VIAL (0.25mg/ml) ONE; -BUMETANIDE 2.5mg/10ml (0.25 mg/ml) INJ IV ONE; -BUMETANIDE INJECTION 10 ML ONE; -POTASSIUM CHL 20 Meq TABLET PO ONE
[2021-08-08 15:50] LABS: BUN/Creatinine Ratio 12.5; Calcium 8.7 mg/dL (8.5-10.1); Potassium 4.6 mmol/L (3.5-5.1)
== END | disposition home or self-care (01) ==
LOC: LAB 13:55
PROVIDERS: ATTEND Internal Medicine Cardiovascular Disease
DX: E03.9 Hypothyroidism, unspecified (principal); I10 Essential (primary) hypertension
CPT/HCPCS: 36415; 80048; 84439; 84443

== ENCOUNTER → 2021-08-18 | Outpatient (CLI) | payer MEDICARE, OTHER ==
[2021-08-18 14:14] LABS: Basophils # (auto) 0.1 10 ^3/uL (0-0.2); Basophils % (auto) 0.3 % (0.0-2.0); Eosinophils # (auto) 0.1 10 ^3/uL (0-0.8); Eosinophils % (auto) 0.4 % (0.0-7.0); Hematocrit 50.5 % (41.0-53.0); Hemoglobin 16.9 g/dL (13.5-17.5); Lymphocytes # (auto) 0.7 10 ^3/uL (0.4-5.4); Lymphocytes % (auto) 3.9 % (10.0-50.0); Mean Corpuscular Hemoglobin 32.5 pg (28.0-32.0); Mean Corpuscular Hgb Conc. 33.6 g/dL (32.0-36.0); Mean Corpuscular Volume 96.9 fL (80.0-100.0); Monocytes # (auto) 1.8 10 ^3/uL (0-1.3); Monocytes % (auto) 9.4 % (0.0-12.0); Neutrophils # (auto) 16.1 10 ^3/uL (1.6-8.6); Nucleated Red Blood Cells % 0.1 %; Red Blood Cells 5.21 10^6/uL (4.5-5.90); Red Cell Distribution Width 15.4 % (11.8-14.3); White Blood Cell 18.8 10^3/uL (4.4-10.8)
[2021-08-18 14:15] LABS: Urine Blood Negative /uL (Negative); Urine Specific Gravity 1.026 (1.001-1.035)
[2021-08-18 14:22] LABS: Albumin 2.6 g/dL (3.4-5.0); Anion Gap 6 (5-15); Blood Urea Nitrogen 55 mg/dL (7-18); Calcium 8.7 mg/dL (8.5-10.1); Carbon Dioxide 24 mmol/L (21-32); Chloride 107 mmol/L (98-107); Glucose 78 mg/dL (74-106); Potassium 3.9 mmol/L (3.5-5.1); Sodium 137 mmol/L (136-145)
[2021-08-18 14:30] LABS: Alanine Aminotransferase 26 U/L (16-61); Alkaline Phosphatase 119 U/L (45-117); Aspartate Aminotransferase 37 U/L (15-37); BUN/Creatinine Ratio 23.9; Bilirubin, Direct 1.4 mg/dL (0-0.2); Bilirubin, Total 2.9 mg/dL (0.2-1.0); Cholesterol < 50 mg/dL (< 200); GFR African American 35 mL/min; GFR Non-African American 29 mL/min; HDL Cholesterol 30 mg/dL (40-59); LDL Cholesterol 19 mg/dL (< 100); Total Protein 7.1 g/dL (6.4-8.2); Triglycerides 58 mg/dL (< 150)
== END | disposition home or self-care (01) ==
LOC: Rad HDHVI 12:54
PROVIDERS: ATTEND Internal Medicine Cardiovascular Disease
DX: I51.7 Cardiomegaly (principal); D64.9 Anemia, unspecified; I10 Essential (primary) hypertension; E11.9 Type 2 diabetes mellitus without complications; D51.3 Other dietary vitamin B12 deficiency anemia; E55.9 Vitamin D deficiency, unspecified; R00.2 Palpitations; R53.1 Weakness; C61 Malignant neoplasm of prostate; R30.0 Dysuria; R06.02 Shortness of breath
CPT/HCPCS: 36415; 71046; 80048; 80061; 80076; 81003; 82306; 83036; 83880; 84153; 84403; 84443; 85025

== ENCOUNTER → 2021-09-06 | Outpatient (CLI) | payer MEDICARE, OTHER ==
[~2021-09-06] MED LIST changes: +BUMETANIDE 2.5mg/10ml (0.25 mg/ml) INJ IV ONE; +BUMETANIDE INJECTION 20 ML ONE; +POTASSIUM CHL 20 Meq TABLET PO ONE; +levoFLOXacin 500MG 100 ML IV ONE
[2021-09-06 11:36] VITALS: BP 120/50
[2021-09-06 13:17] VITALS: BP 131/51
== END | disposition home or self-care (01) ==
LOC: CHF HDHVI 11:36
PROVIDERS: ATTEND Internal Medicine Cardiovascular Disease
DX: J06.9 Acute upper respiratory infection, unspecified (principal); I10 Essential (primary) hypertension; E11.9 Type 2 diabetes mellitus without complications; E03.9 Hypothyroidism, unspecified; Z85.46 Personal history of malignant neoplasm of prostate
CPT/HCPCS: 96365; 96375; G0463; J1956

== ENCOUNTER → 2021-09-13 | Outpatient (CLI) | payer MEDICARE, OTHER ==
[~2021-09-13] MED LIST changes: -BUMETANIDE 2.5mg/10ml (0.25 mg/ml) INJ IV ONE; -BUMETANIDE INJECTION 20 ML ONE; -POTASSIUM CHL 20 Meq TABLET PO ONE; -levoFLOXacin 500MG 100 ML IV ONE
== END | disposition home or self-care (01) ==
LOC: Rad HDHVI 15:25
PROVIDERS: ATTEND Internal Medicine Cardiovascular Disease
DX: I08.8 Other rheumatic multiple valve diseases (principal); R00.2 Palpitations
CPT/HCPCS: 93306

== ENCOUNTER → 2021-12-08 | Outpatient (CLI) | payer MEDICARE, OTHER ==
[2021-12-08 14:50] LABS: Basophils # (auto) 0.1 10 ^3/uL (0-0.2); Basophils % (auto) 0.8 % (0.0-2.0); Eosinophils # (auto) 0.3 10 ^3/uL (0-0.8); Eosinophils % (auto) 3.8 % (0.0-7.0); Hematocrit 46.5 % (41.0-53.0); Hemoglobin 14.9 g/dL (13.5-17.5); Lymphocytes # (auto) 0.7 10 ^3/uL (0.4-5.4); Lymphocytes % (auto) 8.4 % (10.0-50.0); Mean Corpuscular Hemoglobin 30.2 pg (28.0-32.0); Mean Corpuscular Volume 94.3 fL (80.0-100.0); Monocytes # (auto) 1.2 10 ^3/uL (0-1.3); Monocytes % (auto) 13.6 % (0.0-12.0); Neutrophils # (auto) 6.3 10 ^3/uL (1.6-8.6); Neutrophils % (auto) 73.4 % (37.0-80.0); Nucleated Red Blood Cells % 0.1 %; Red Blood Cells 4.94 10^6/uL (4.5-5.90); Red Cell Distribution Width 14.6 % (11.8-14.3); White Blood Cell 8.6 10^3/uL (4.4-10.8)
[2021-12-08 14:53] LABS: Urine Blood 3+ /uL (Negative)
[2021-12-08 15:00] LABS: Calcium 8.5 mg/dL (8.5-10.1); Potassium 5.4 mmol/L (3.5-5.1)
[2021-12-08 15:07] LABS: Albumin 2.2 g/dL (3.4-5.0); BUN/Creatinine Ratio 11.9; Bilirubin, Direct 0.6 mg/dL (0-0.2); Bilirubin, Total 1.3 mg/dL (0.2-1.0); Total Protein 7.4 g/dL (6.4-8.2)
== END | disposition home or self-care (01) ==
LOC: Rad HDHVI 11:53
PROVIDERS: ATTEND Internal Medicine Cardiovascular Disease
DX: K44.9 Diaphragmatic hernia without obstruction or gangrene (principal); K80.20 Calculus of gallbladder without cholecystitis without obstruction; I25.10 Atherosclerotic heart disease of native coronary artery without angina pectoris; J94.8 Other specified pleural conditions; R16.1 Splenomegaly, not elsewhere classified; N42.89 Other specified disorders of prostate; C61 Malignant neoplasm of prostate; D64.9 Anemia, unspecified; E11.9 Type 2 diabetes mellitus without complications; I10 Essential (primary) hypertension; E55.9 Vitamin D deficiency, unspecified; R00.2 Palpitations; R53.1 Weakness; R30.0 Dysuria; D51.3 Other dietary vitamin B12 deficiency anemia
CPT/HCPCS: 36415; 74176; 80048; 80061; 80076; 81003; 82306; 83036; 84153; 84403; 84443; 85025; 87086

== ENCOUNTER 2021-12-21 06:53 | Inpatient (IN) | payer MEDICARE, OTHER ==
[2021-12-21] VITALS (13 sets, daily range): BP systolic 105–113; BP diastolic 36–51
[~2021-12-21] VITALS: Ht 167.6 cm; Wt 62.6 kg
[~2021-12-21 06:53] MED LIST changes: -CLOP75TA28 PO; +LIOT5TAB9 PO; +POTA-220 PO; +RIVA2.5T PO; +TADA20TA47 PO
[2021-12-21] MEDS ORDERED: fentaNYL CITRATE 100 MCG/2 ML VL ONE (07:38)
[2021-12-21] MEDS ORDERED: ANGIOMAX 250 MG VIAL IV ONE (07:38)
[2021-12-21] MEDS ORDERED: IOHEXOL 350 MG/ML 100ML IJ ONE (07:38)
[2021-12-21] MEDS ORDERED: LIDOCAINE 2%HCL (LOCAL ANESTH.) INJ 20ML MDV ONE ×2 (07:38→07:48)
[2021-12-21] MEDS ORDERED: MIDAZOLAM HCL 2MG/2ML 2ml VIAL (1mg/ml) ONE (07:38)
[2021-12-21] MEDS ORDERED: SODIUM CHL 0.9% 0 ML ONE (07:38)
[2021-12-21] MEDS ORDERED: IODIXANOL 320MG/ML 100ML BTL IV ONE (08:05)
[2021-12-21] MEDS ORDERED: NITROGLYCERIN 0.4 MG SL TAB SL PRN (08:15)
[2021-12-21] MEDS ORDERED: MORPHINE SULFATE INJ 2 MG/ml SYRG IV PRN (08:15)
[2021-12-21] MEDS: FUROSEMIDE INJECTION 100 MG in D5W 5% 100 ML IV SCH (08:49)
[2021-12-21] MEDS: MILRINONE 20MG/100ML 100 ML IV SCH ×2 (09:18→19:53)
[2021-12-21] MEDS: CLOPIDOGREL BISULFATE 75 MG TAB PO SCH (09:58)
[2021-12-22] MEDS: FUROSEMIDE INJECTION 100 MG in D5W 5% 100 ML IV SCH (02:24)
[2021-12-22 05:00] VITALS: BP 114/44
[2021-12-22 07:50] VITALS: BP 102/35
[2021-12-22 09:00] VITALS: BP 104/95
[2021-12-22] MEDS: CLOPIDOGREL BISULFATE 75 MG TAB PO SCH (10:08)
[2021-12-22] MEDS: MILRINONE 20MG/100ML 100 ML IV SCH ×2 (10:09→21:28)
[2021-12-22 13:00] VITALS: BP 104/35
[2021-12-22 16:34] VITALS: BP 108/49
[2021-12-22 22:00] VITALS: BP 98/49
[2021-12-23] MEDS: FUROSEMIDE INJECTION 100 MG in D5W 5% 100 ML IV SCH (00:29)
[2021-12-23] MEDS: MILRINONE 20MG/100ML 100 ML IV SCH ×2 (02:04→18:47)
[2021-12-23 04:59] VITALS: BP 103/42
[2021-12-23 07:40] VITALS: BP 139/95
[2021-12-23 08:49] LABS: Basophils # (auto) 0.1 10 ^3/uL (0-0.2); Basophils % (auto) 1.1 % (0.0-2.0); Eosinophils # (auto) 0.4 10 ^3/uL (0-0.8); Eosinophils % (auto) 4.5 % (0.0-7.0); Hematocrit 45.8 % (41.0-53.0); Hemoglobin 15.1 g/dL (13.5-17.5); Lymphocytes # (auto) 1.4 10 ^3/uL (0.4-5.4); Lymphocytes % (auto) 14.9 % (10.0-50.0); Mean Corpuscular Hemoglobin 29.6 pg (28.0-32.0); Mean Corpuscular Volume 89.5 fL (80.0-100.0); Monocytes # (auto) 1.3 10 ^3/uL (0-1.3); Monocytes % (auto) 13.7 % (0.0-12.0); Neutrophils # (auto) 6.2 10 ^3/uL (1.6-8.6); Neutrophils % (auto) 65.8 % (37.0-80.0); Nucleated Red Blood Cells % 0.3 %; Red Blood Cells 5.11 10^6/uL (4.5-5.90); Red Cell Distribution Width 14.5 % (11.8-14.3); White Blood Cell 9.4 10^3/uL (4.4-10.8)
[2021-12-23 09:20] VITALS: BP 110/45
[2021-12-23] MEDS: CLOPIDOGREL BISULFATE 75 MG TAB PO SCH (10:16)
[2021-12-23 11:01] LABS: Urine Bacteria NONE SEEN /hpf (None Seen); Urine Blood 3+ /uL (Negative); Urine Specific Gravity 1.013 (1.001-1.035); Urine WBC 839 /hpf (0 - 3)
[2021-12-23 13:03] VITALS: BP 102/42
[2021-12-23 17:00] VITALS: BP 97/47
[2021-12-23 22:00] VITALS: BP 105/51
[2021-12-24] MEDS: FUROSEMIDE INJECTION 100 MG in D5W 5% 100 ML IV SCH ×2 (00:27→16:15)
[2021-12-24 05:00] VITALS: BP 102/49
[2021-12-24] MEDS: MILRINONE 20MG/100ML 100 ML IV SCH ×2 (07:21→18:25)
[2021-12-24] MEDS: NAPROXEN 500 MG TAB PO PRN ×2 (10:38→22:13)
[2021-12-24 13:00] VITALS: BP 109/50
[2021-12-24 15:26] LABS: Basophils # (auto) 0.1 10 ^3/uL (0-0.2); Basophils % (auto) 1.2 % (0.0-2.0); Eosinophils # (auto) 0.3 10 ^3/uL (0-0.8); Eosinophils % (auto) 2.8 % (0.0-7.0); Hematocrit 43.8 % (41.0-53.0); Hemoglobin 14.4 g/dL (13.5-17.5); Lymphocytes # (auto) 1.8 10 ^3/uL (0.4-5.4); Lymphocytes % (auto) 15.3 % (10.0-50.0); Mean Corpuscular Hemoglobin 29.5 pg (28.0-32.0); Mean Corpuscular Hgb Conc. 32.9 g/dL (32.0-36.0); Mean Corpuscular Volume 89.5 fL (80.0-100.0); Monocytes # (auto) 1.5 10 ^3/uL (0-1.3); Monocytes % (auto) 13.1 % (0.0-12.0); Neutrophils # (auto) 7.9 10 ^3/uL (1.6-8.6); Neutrophils % (auto) 67.6 % (37.0-80.0); Red Blood Cells 4.89 10^6/uL (4.5-5.90); Red Cell Distribution Width 14.4 % (11.8-14.3); White Blood Cell 11.7 10^3/uL (4.4-10.8)
[2021-12-24] MEDS: SODIUM CHLORIDE 0.9% 1,000 ML IV SCH (16:23)
[2021-12-24 17:00] VITALS: BP 133/84
[2021-12-24 22:00] VITALS: BP 99/51
[2021-12-25] MEDS: FUROSEMIDE INJECTION 100 MG in D5W 5% 100 ML IV SCH (00:10)
[2021-12-25] MEDS: SODIUM CHLORIDE 0.9% 1,000 ML IV SCH ×3 (02:12→21:10)
[2021-12-25 05:00] VITALS: BP 97/48
[2021-12-25] MEDS: MILRINONE 20MG/100ML 100 ML IV SCH (07:26)
[2021-12-25 08:30] VITALS: BP 88/39
[2021-12-25 12:30] VITALS: BP 87/41
[2021-12-25] MEDS: HYDROcodone-ACET 5/325MG TAB PO PRN ×2 (13:35→21:10)
[2021-12-25 15:50] LABS: Basophils # (auto) 0.1 10 ^3/uL (0-0.2); Basophils % (auto) 1.1 % (0.0-2.0); Eosinophils # (auto) 0.4 10 ^3/uL (0-0.8); Eosinophils % (auto) 4.3 % (0.0-7.0); Hematocrit 37.8 % (41.0-53.0); Hemoglobin 12.2 g/dL (13.5-17.5); Lymphocytes % (auto) 11.5 % (10.0-50.0); Mean Corpuscular Hemoglobin 28.9 pg (28.0-32.0); Mean Corpuscular Hgb Conc. 32.3 g/dL (32.0-36.0); Mean Corpuscular Volume 89.5 fL (80.0-100.0); Monocytes # (auto) 0.9 10 ^3/uL (0-1.3); Monocytes % (auto) 10.3 % (0.0-12.0); Neutrophils # (auto) 6.1 10 ^3/uL (1.6-8.6); Neutrophils % (auto) 72.8 % (37.0-80.0); Nucleated Red Blood Cells % 0.3 %; Red Blood Cells 4.22 10^6/uL (4.5-5.90); Red Cell Distribution Width 14.5 % (11.8-14.3); White Blood Cell 8.4 10^3/uL (4.4-10.8)
[2021-12-25 16:08] LABS: INR 1.36 (0.9-1.15)
[2021-12-25 17:00] VITALS: BP 96/40
[2021-12-25 22:00] VITALS: BP 118/49
[2021-12-26 05:00] VITALS: BP 114/44
[2021-12-26] MEDS: SODIUM CHLORIDE 0.9% 1,000 ML IV SCH ×2 (06:29→17:34)
[2021-12-26] MEDS: HYDROcodone-ACET 5/325MG TAB PO PRN ×2 (07:53→21:20)
[2021-12-26 07:56] LABS: Albumin 1.8 g/dL (3.4-5.0); Basophils # (auto) 0.1 10 ^3/uL (0-0.2); Calcium 7.5 mg/dL (8.5-10.1); Eosinophils # (auto) 0.4 10 ^3/uL (0-0.8); Eosinophils % (auto) 5.1 % (0.0-7.0); Hematocrit 36.6 % (41.0-53.0); Hemoglobin 12.1 g/dL (13.5-17.5); Lymphocytes # (auto) 1.2 10 ^3/uL (0.4-5.4); Lymphocytes % (auto) 14.9 % (10.0-50.0); Mean Corpuscular Hemoglobin 29.9 pg (28.0-32.0); Mean Corpuscular Hgb Conc. 33.2 g/dL (32.0-36.0); Mean Corpuscular Volume 90.1 fL (80.0-100.0); Monocytes # (auto) 0.8 10 ^3/uL (0-1.3); Monocytes % (auto) 10.2 % (0.0-12.0); Neutrophils # (auto) 5.7 10 ^3/uL (1.6-8.6); Neutrophils % (auto) 68.8 % (37.0-80.0); Nucleated Red Blood Cells % 0.1 %; Potassium 3.9 mmol/L (3.5-5.1); Red Blood Cells 4.06 10^6/uL (4.5-5.90); Red Cell Distribution Width 14.7 % (11.8-14.3); White Blood Cell 8.3 10^3/uL (4.4-10.8)
[2021-12-26 08:00] LABS: BUN/Creatinine Ratio 15.2; Bilirubin, Total 1.2 mg/dL (0.2-1.0)
[2021-12-26 09:00] VITALS: BP 114/49
[2021-12-26 13:00] VITALS: BP 102/49
[2021-12-26 17:00] VITALS: BP 101/59
[2021-12-26 22:00] VITALS: BP 120/47
[2021-12-27] MEDS: SODIUM CHLORIDE 0.9% 1,000 ML IV SCH ×3 (04:23→23:56)
[2021-12-27] MEDS: HYDROcodone-ACET 5/325MG TAB PO PRN ×3 (04:43→23:35)
[2021-12-27 05:00] VITALS: BP 112/43
[2021-12-27 09:00] VITALS: BP 112/50
[2021-12-27 13:00] VITALS: BP 115/49
[2021-12-27 16:35] VITALS: BP 107/49
[2021-12-27 22:30] VITALS: BP 128/48
[2021-12-28 04:33] VITALS: BP 121/52
[2021-12-28 09:00] VITALS: BP 129/49
[2021-12-28] MEDS: HYDROcodone-ACET 5/325MG TAB PO PRN ×2 (10:21→22:40)
[2021-12-28] MEDS: SODIUM CHLORIDE 0.9% 1,000 ML IV SCH ×3 (10:57→20:00)
[2021-12-28 13:00] VITALS: BP 128/49
[2021-12-28 17:00] VITALS: BP 131/64
[2021-12-28 22:00] VITALS: BP 138/56
[2021-12-29 05:00] VITALS: BP 123/46
[2021-12-29 08:48] VITALS: BP 118/51
[2021-12-29] MEDS: Pro-Stat SF 30ml Vanilla PO SCH (09:24)
[2021-12-29] MEDS: HYDROcodone-ACET 5/325MG TAB PO PRN ×2 (09:25→21:04)
[2021-12-29 13:00] VITALS: BP 122/51
[2021-12-29] MEDS: SODIUM CHLORIDE 0.9% 1,000 ML IV SCH ×2 (13:45→23:45)
[2021-12-29 16:54] VITALS: BP 137/55
[2021-12-29 22:00] VITALS: BP 153/58
[2021-12-30 05:00] VITALS: BP 121/54
[2021-12-30] MEDS: HYDROcodone-ACET 5/325MG TAB PO PRN ×2 (07:01→17:00)
[2021-12-30 09:00] VITALS: BP 121/58
[2021-12-30 13:10] VITALS: BP 123/52
[2021-12-30] MEDS: Pro-Stat SF 30ml Vanilla PO SCH (14:01)
[2021-12-30] MEDS: SODIUM CHLORIDE 0.9% 1,000 ML IV SCH (14:03)
[2021-12-30 17:00] VITALS: BP 120/63
[2021-12-30 21:38] VITALS: BP 135/60
[2021-12-31] MEDS: SODIUM CHLORIDE 0.9% 1,000 ML IV SCH ×3 (04:02→11:42)
[2021-12-31] MEDS: HYDROcodone-ACET 5/325MG TAB PO PRN ×2 (04:03→14:08)
[2021-12-31 05:22] VITALS: BP 119/52
[2021-12-31 08:29] VITALS: BP 116/50
[2021-12-31] MEDS: Pro-Stat SF 30ml Vanilla PO SCH (11:40)
[2021-12-31 12:41] VITALS: BP 135/58
[2021-12-31 17:00] VITALS: BP 119/53
[2021-12-31 22:00] VITALS: BP 123/61
[2022-01-01] MEDS: HYDROcodone-ACET 5/325MG TAB PO PRN ×3 (01:28→22:36)
[2022-01-01] MEDS: SODIUM CHLORIDE 0.9% 1,000 ML IV SCH ×2 (01:45→11:45)
[2022-01-01 05:00] VITALS: BP 124/57
[2022-01-01] MEDS: Pro-Stat SF 30ml Vanilla PO SCH (09:01)
[2022-01-01 09:15] VITALS: BP 104/56
[2022-01-01 13:00] VITALS: BP 113/59
[2022-01-01] MEDS ORDERED: LIDOCAINE 2%HCL (LOCAL ANESTH.) INJ 20ML MDV ONE (13:45)
[2022-01-01 17:00] VITALS: BP 127/50
[2022-01-01 19:39] LABS: Basophils # (auto) 0.1 10 ^3/uL (0-0.2); Basophils % (auto) 1.2 % (0.0-2.0); Eosinophils # (auto) 0.1 10 ^3/uL (0-0.8); Eosinophils % (auto) 1.1 % (0.0-7.0); Hematocrit 38.8 % (41.0-53.0); Hemoglobin 12.6 g/dL (13.5-17.5); Lymphocytes # (auto) 0.6 10 ^3/uL (0.4-5.4); Lymphocytes % (auto) 6.5 % (10.0-50.0); Mean Corpuscular Hemoglobin 30.1 pg (28.0-32.0); Mean Corpuscular Hgb Conc. 32.4 g/dL (32.0-36.0); Monocytes % (auto) 10.3 % (0.0-12.0); Neutrophils # (auto) 7.5 10 ^3/uL (1.6-8.6); Neutrophils % (auto) 80.9 % (37.0-80.0); Red Blood Cells 4.18 10^6/uL (4.5-5.90); Red Cell Distribution Width 15.3 % (11.8-14.3); White Blood Cell 9.3 10^3/uL (4.4-10.8)
[2022-01-01 19:53] LABS: Albumin 1.8 g/dL (3.4-5.0); Calcium 7.8 mg/dL (8.5-10.1); Potassium 4.6 mmol/L (3.5-5.1)
[2022-01-01 19:55] LABS: BUN/Creatinine Ratio 13.5
[2022-01-01 19:58] LABS: Bilirubin, Total 1.1 mg/dL (0.2-1.0); Total Protein 6.6 g/dL (6.4-8.2)
[2022-01-01 20:00] VITALS: BP 99/51
[2022-01-01 22:00] VITALS: BP 140/59
[2022-01-01] MEDS: MEGESTROL ACETATE 20 MG TAB PO SCH (22:35)
[2022-01-02] VITALS (9 sets, daily range): BP systolic 124–154; BP diastolic 53–75
[2022-01-02] MEDS: Pro-Stat SF 30ml Vanilla PO SCH (10:00)
[2022-01-02] MEDS: MEGESTROL ACETATE 20 MG TAB PO SCH ×2 (10:00→22:18)
[2022-01-02] MEDS: HYDROcodone-ACET 5/325MG TAB PO PRN ×2 (11:19→20:24)
[2022-01-02] MEDS ORDERED: VANCOMYCIN 1GM/250ML 250 ML IV ONE ×2 (15:17→18:30)
[2022-01-02] MEDS ORDERED: MIDAZOLAM HCL 2MG/2ML 2ml VIAL (1mg/ml) ONE (15:17)
[2022-01-02] MEDS ORDERED: VANCOMYCIN HCL 1000 MG VL ONE (15:17)
[2022-01-02] MEDS ORDERED: fentaNYL CITRATE 100 MCG/2 ML VL ONE (15:17)
[2022-01-02] MEDS ORDERED: LIDOCAINE 2%HCL (LOCAL ANESTH.) INJ 20ML MDV ONE (15:18)
[2022-01-02] MEDS ORDERED: IOHEXOL 350 MG/ML 100ML IJ ONE (15:18)
[2022-01-02] MEDS ORDERED: FUROSEMIDE 20 MG/2 ML VIAL ONE (16:20)
[2022-01-02] MEDS ORDERED: VANCOMYCIN 1GM/250ML 250 ML IV SCH (22:00)
[2022-01-02] MEDS: ceFAZolin 1GM/50ML 50 ML IV SCH (22:18)
[2022-01-03] VITALS (7 sets, daily range): BP systolic 104–140; BP diastolic 53–61
[2022-01-03] MEDS ORDERED: VANCOMYCIN 1GM/250ML 250 ML IV SCH ×3 (04:30→06:00)
[2022-01-03] MEDS: ceFAZolin 1GM/50ML 50 ML IV SCH ×3 (06:06→21:01)
[2022-01-03] MEDS: HYDROcodone-ACET 5/325MG TAB PO PRN ×2 (08:25→15:47)
[2022-01-03] MEDS: MEGESTROL ACETATE 20 MG TAB PO SCH ×2 (09:27→21:01)
[2022-01-03] MEDS: Pro-Stat SF 30ml Vanilla PO SCH (09:27)
[2022-01-03] MEDS: FUROSEMIDE 40 MG/4 ML VIAL IV SCH ×2 (18:53→21:08)
[2022-01-03] MEDS: POTASSIUM CHL 20 Meq TABLET PO SCH (21:01)
[2022-01-03] MEDS: AMIODARONE HCL 200 MG TAB PO SCH (21:02)
[2022-01-04] MEDS: HYDROcodone-ACET 5/325MG TAB PO PRN ×3 (00:53→20:23)
[2022-01-04 05:00] VITALS: BP 99/60
[2022-01-04 09:00] VITALS: BP 109/61
[2022-01-04] MEDS: POTASSIUM CHL 20 Meq TABLET PO SCH ×2 (10:25→22:16)
[2022-01-04] MEDS: MEGESTROL ACETATE 20 MG TAB PO SCH ×2 (10:25→22:17)
[2022-01-04] MEDS: AMIODARONE HCL 200 MG TAB PO SCH ×2 (10:25→22:14)
[2022-01-04] MEDS: Pro-Stat SF 30ml Vanilla PO SCH (10:25)
[2022-01-04 13:00] VITALS: BP 105/53
[2022-01-04] MEDS ORDERED: AMIODARONE HCL 200 MG TAB PO ONE (16:45)
[2022-01-04 17:03] VITALS: BP 101/55
[2022-01-04] MEDS: FUROSEMIDE 40 MG/4 ML VIAL IV SCH (18:41)
[2022-01-04 18:53] LABS: BUN/Creatinine Ratio 15.7; Calcium 8.2 mg/dL (8.5-10.1); Potassium 5.1 mmol/L (3.5-5.1)
[2022-01-04 20:00] VITALS: BP 109/64
[2022-01-04 22:00] VITALS: BP 109/64
[2022-01-05 05:00] VITALS: BP 111/64
[2022-01-05] MEDS: FUROSEMIDE 40 MG/4 ML VIAL IV SCH (05:50)
[2022-01-05] MEDS: HYDROcodone-ACET 5/325MG TAB PO PRN ×2 (05:53→11:01)
[2022-01-05 09:39] VITALS: BP 109/49
[2022-01-05] MEDS: POTASSIUM CHL 20 Meq TABLET PO SCH (10:00)
[2022-01-05] MEDS: Pro-Stat SF 30ml Vanilla PO SCH (10:00)
[2022-01-05] MEDS: MEGESTROL ACETATE 20 MG TAB PO SCH ×2 (11:00→21:51)
[2022-01-05] MEDS: AMIODARONE HCL 200 MG TAB PO SCH ×2 (11:00→21:52)
[2022-01-05] MEDS ORDERED: CLOPIDOGREL BISULFATE 75 MG TAB PO ONE (11:00)
[2022-01-05 12:52] VITALS: BP 114/47
[2022-01-05 15:57] LABS: Albumin 1.9 g/dL (3.4-5.0); Calcium 8.5 mg/dL (8.5-10.1); Potassium 5.4 mmol/L (3.5-5.1)
[2022-01-05 15:59] LABS: BUN/Creatinine Ratio 15.7
[2022-01-05 16:02] LABS: Bilirubin, Total 0.8 mg/dL (0.2-1.0); Total Protein 7.1 g/dL (6.4-8.2)
[2022-01-05 16:21] VITALS: BP 121/49
[2022-01-05] MEDS ORDERED: LACTULOSE 20Gm/30ML SOLN PO PRN (18:00)
[2022-01-05] MEDS: FUROSEMIDE INJECTION 100 MG in SODIUM CHL 0.9% 100 ML IV SCH ×2 (19:37→23:40)
[2022-01-05 21:54] VITALS: BP 127/45
[2022-01-06 04:36] VITALS: BP 125/48
[2022-01-06] MEDS: FUROSEMIDE INJECTION 100 MG in SODIUM CHL 0.9% 100 ML IV SCH ×5 (05:10→21:33)
[2022-01-06 07:03] LABS: Calcium 8.5 mg/dL (8.5-10.1); Potassium 4.2 mmol/L (3.5-5.1)
[2022-01-06 07:05] LABS: BUN/Creatinine Ratio 17.6
[2022-01-06] MEDS: HYDROcodone-ACET 5/325MG TAB PO PRN ×2 (08:54→17:00)
[2022-01-06] MEDS: CLOPIDOGREL BISULFATE 75 MG TAB PO SCH (08:55)
[2022-01-06] MEDS: AMIODARONE HCL 200 MG TAB PO SCH ×2 (08:55→21:11)
[2022-01-06] MEDS: POTASSIUM CHL 20 Meq TABLET PO SCH (08:56)
[2022-01-06] MEDS: MEGESTROL ACETATE 20 MG TAB PO SCH ×2 (08:56→21:12)
[2022-01-06] MEDS: Pro-Stat SF 30ml Vanilla PO SCH (08:57)
[2022-01-06 09:14] VITALS: BP 129/46
[2022-01-06 13:00] VITALS: BP 118/50
[2022-01-06 16:35] VITALS: BP 131/51
[2022-01-06 21:40] VITALS: BP 124/46
[2022-01-07] MEDS: HYDROcodone-ACET 5/325MG TAB PO PRN ×3 (02:23→18:36)
[2022-01-07] MEDS: FUROSEMIDE INJECTION 100 MG in SODIUM CHL 0.9% 100 ML IV SCH ×5 (02:31→23:39)
[2022-01-07 04:30] VITALS: BP 96/43
[2022-01-07 08:54] VITALS: BP 130/47
[2022-01-07] MEDS: AMIODARONE HCL 200 MG TAB PO SCH ×2 (09:44→20:50)
[2022-01-07] MEDS: MEGESTROL ACETATE 20 MG TAB PO SCH ×2 (09:44→20:50)
[2022-01-07] MEDS: CLOPIDOGREL BISULFATE 75 MG TAB PO SCH (09:45)
[2022-01-07] MEDS: POTASSIUM CHL 20 Meq TABLET PO SCH (09:45)
[2022-01-07] MEDS: Pro-Stat SF 30ml Vanilla PO SCH (09:46)
[2022-01-07 12:36] VITALS: BP 97/40
[2022-01-07 16:46] VITALS: BP 121/53
[2022-01-07 22:07] VITALS: BP 108/60
[2022-01-08] MEDS: HYDROcodone-ACET 5/325MG TAB PO PRN ×3 (01:44→17:20)
[2022-01-08 05:00] VITALS: BP 111/52
[2022-01-08] MEDS: FUROSEMIDE INJECTION 100 MG in SODIUM CHL 0.9% 100 ML IV SCH ×4 (05:15→20:24)
[2022-01-08 07:30] LABS: Albumin 2.1 g/dL (3.4-5.0); BUN/Creatinine Ratio 13.8; Calcium 9.1 mg/dL (8.5-10.1); Phosphorus 2.9 mg/dL (2.5-4.90)
[2022-01-08 08:13] LABS: Potassium 4.9 mmol/L (3.5-5.1)
[2022-01-08 09:00] VITALS: BP 114/44
[2022-01-08] MEDS: AMIODARONE HCL 200 MG TAB PO SCH ×2 (09:48→22:18)
[2022-01-08] MEDS: CLOPIDOGREL BISULFATE 75 MG TAB PO SCH (09:48)
[2022-01-08] MEDS: Pro-Stat SF 30ml Vanilla PO SCH (09:49)
[2022-01-08] MEDS: POTASSIUM CHL 20 Meq TABLET PO SCH (09:49)
[2022-01-08] MEDS: MEGESTROL ACETATE 20 MG TAB PO SCH ×2 (09:49→22:18)
[2022-01-08 13:00] VITALS: BP 121/50
[2022-01-08 17:05] VITALS: BP 124/40
[2022-01-08 22:00] VITALS: BP 119/44
[2022-01-09] MEDS: FUROSEMIDE INJECTION 100 MG in SODIUM CHL 0.9% 100 ML IV SCH ×3 (01:02→10:30)
[2022-01-09] MEDS: HYDROcodone-ACET 5/325MG TAB PO PRN ×2 (01:03→08:59)
[2022-01-09 05:00] VITALS: BP 110/41
[2022-01-09 08:00] VITALS: BP 103/40
[2022-01-09] MEDS: CLOPIDOGREL BISULFATE 75 MG TAB PO SCH (08:53)
[2022-01-09] MEDS: Pro-Stat SF 30ml Vanilla PO SCH (08:54)
[2022-01-09] MEDS: POTASSIUM CHL 20 Meq TABLET PO SCH (08:54)
[2022-01-09] MEDS: MEGESTROL ACETATE 20 MG TAB PO SCH (08:54)
[2022-01-09] MEDS: AMIODARONE HCL 200 MG TAB PO SCH (08:54)
[2022-01-09 12:00] VITALS: BP_SYST 112; BP_SYST 117; BP_DIAS 45; BP_DIAS 51
[2022-01-09 14:19] VITALS: BP 112/45
[2022-01-09 16:00] VITALS: BP 116/38
== END 2022-01-09 17:52 | disposition home or self-care (01) | DRG 222 ==
LOC: CATH 06:53 → TELE 08:17 → TELE-WESTW 14:01
PROVIDERS: ADMIT Internal Medicine Cardiovascular Disease; ATTEND Internal Medicine Cardiovascular Disease
PROC: 4A023N7 Measurement of Cardiac Sampling and Pressure, Left Heart, Percutaneous Approach (ICD-10-PCS; principal; 2021-12-21)
PROC: B211YZZ Fluoroscopy of Multiple Coronary Arteries using Other Contrast (ICD-10-PCS; 2021-12-21)
PROC: B215YZZ Fluoroscopy of Left Heart using Other Contrast (ICD-10-PCS; 2021-12-21)
PROC: B218YZZ Fluoroscopy of Left Internal Mammary Bypass Graft using Other Contrast (ICD-10-PCS; 2021-12-21)
PROC: B21FYZZ Fluoroscopy of Other Bypass Graft using Other Contrast (ICD-10-PCS; 2021-12-21)
PROC: B517YZZ Fluoroscopy of Left Subclavian Vein using Other Contrast (ICD-10-PCS; 2021-12-21)
PROC: 0JH609Z Insertion of Cardiac Resynchronization Defibrillator Pulse Generator into Chest Subcutaneous Tissue and Fascia, Open Approach (ICD-10-PCS; 2022-01-02)
PROC: 02HK3KZ Insertion of Defibrillator Lead into Right Ventricle, Percutaneous Approach (ICD-10-PCS; 2022-01-02)
PROC: 02HL3KZ Insertion of Defibrillator Lead into Left Ventricle, Percutaneous Approach (ICD-10-PCS; 2022-01-02)
PROC: 02H63KZ Insertion of Defibrillator Lead into Right Atrium, Percutaneous Approach (ICD-10-PCS; 2022-01-02)
DX: I21.4 Non-ST elevation (NSTEMI) myocardial infarction (principal); I50.21 Acute systolic (congestive) heart failure; D68.59 Other primary thrombophilia; I13.0 Hypertensive heart and chronic kidney disease with heart failure and stage 1 through stage 4 chronic kidney disease, or unspecified chronic kidney disease; I27.20 Pulmonary hypertension, unspecified; I25.5 Ischemic cardiomyopathy; R31.0 Gross hematuria; R33.8 Other retention of urine; D72.829 Elevated white blood cell count, unspecified; Z20.822 Contact with and (suspected) exposure to COVID-19; I25.10 Atherosclerotic heart disease of native coronary artery without angina pectoris; J44.9 Chronic obstructive pulmonary disease, unspecified; N18.9 Chronic kidney disease, unspecified; N40.1 Benign prostatic hyperplasia with lower urinary tract symptoms; E03.9 Hypothyroidism, unspecified; D75.1 Secondary polycythemia; Z79.01 Long term (current) use of anticoagulants; Z79.02 Long term (current) use of antithrombotics/antiplatelets; Z79.82 Long term (current) use of aspirin; Z82.49 Family history of ischemic heart disease and other diseases of the circulatory system; Z86.73 Personal history of transient ischemic attack (TIA), and cerebral infarction without residual deficits; Z95.5 Presence of coronary angioplasty implant and graft; Z95.810 Presence of automatic (implantable) cardiac defibrillator; Z95.1 Presence of aortocoronary bypass graft
CPT/HCPCS: 33225; 33249; 36415; 71045; 71046; 76775; 80048; 80053; 80069; 81001; 84154; 85025; 85610; 85730; 86850; 86900; 86901; 93005; 93459; 97110; 97116; 97163; 97530; 99152; 99153; C1751; C1882; G0378; G0463; J0690; J2250; J7060; Q9967